=== PATIENT | male | born 1950 | race Caucasian/White ===

== ENCOUNTER → 2017-04-01 | Day surgery (SDC) | payer MEDICARE, BC ==
[~2017-04-01] MED LIST: ALKA-SELTZER125 MG PO; AMOXICILLIN250 MG PO; APPLE CIDER VINEGAR PO; BEET ROOT PO; BENICAR PO; BLACK CHERRY PO; BYSTOLIC2.5 MG PO; CINNAMON ALPHA1 EACH PO; CRESTOR10 MG PO; DOCUSATE SODIU100 MG PO; FLOVENT HFA10.6 GM INH; HYDROCODON-ACE1 EAC7 PO; JANUVIA PO; LO-DOSE ASPIRIN81 M1 PO; MAGNESIUM500 MG PO; OMEPRAZOLE20 M2 PO; TOUJEO SOL300 UNIT/1 SUBQ; TURMERIC500 M1 PO; TYLENOL PM PO; ZINC LOZENGE25 MG PO; ZYLOPRIM100 MG PO
--- NOTE | ~2017-04-01 | OR ---
Unit #: [id number] #: [id number] Patient: LISBET SANTOS [id number] [facility]. [address] [place], [place] [address] [id number] O MR#: [id number] NAME: LISBET SANTOS ROOM: Date of Procedure: 04/01/2017 Admission Date: 04/01/2017 Surgeon: Kirill Solis Jr., M.D. : 1950 Attending Physician: Kirill Solis Jr., M.D. Primary Care Physician: Rodolfo Marin Jr., M.D. OPERATIVE REPORT INDICATIONS FOR PROCEDURE The patient is a 66-year-old white male, who recently underwent a biopsy of 2 separate lesions, one of the right lateral back and one of the midback. The midback proved to be no evidence of any cancer. The lateral back looks suspicious for possible early melanoma. It was felt this needed to be widely excised. He is brought in this time at his request for this procedure. PREOPERATIVE DIAGNOSIS Possible melanoma of the right flank. POSTOPERATIVE DIAGNOSIS Possible melanoma of the right flank. ANESTHESIA 1% Xylocaine with epinephrine locally. PROCEDURE PERFORMED Wide excision of scar and skin lesion of the right flank. DESCRIPTION OF PROCEDURE The patient was positioned in left lateral decubitus position. After being prepped and draped in routine fashion, he was anesthetized locally in the area of the scar from his recent biopsy with 1% Xylocaine with epinephrine. An elliptical incision was made around the lesion with the closest margins being over a centimeter in length. This incision was carried down through the skin and subcutaneous tissue with #10 blade scalpel down to the deeper subcutaneous tissue. After the specimen was completely removed, it was sent to pathology. Hemostasis was achieved with Bovie cautery. The deeper tissue approximated with interrupted 3-0 Vicryl sutures. The subcutaneous tissue approximated with continuous 4-0 Vicryl stitch and skin edges approximated with 5-0 nylon sutures. Sterile dressings were applied externally. Estimated blood loss minimal. No drains used. No complications. The patient was discharged in satisfactory condition. Dictated by... Kirill Solis Jr., M.D. JMB/lai Unit #: [id number] #: [id number] Patient: MANISH SANTOSRAQUEL Mcmillan TD: 04/01/2017 23:34 JOB #: [id number] OPERATIVE REPORT Page 1 of 1 X Kirill Solis MD PROCEDURE OPERATIVE NOTE
== END | disposition home or self-care (01) ==
LOC: CSUR 12:52
DX: D22.5 Melanocytic nevi of trunk (principal); I12.9 Hypertensive chronic kidney disease with stage 1 through stage 4 chronic kidney disease, or unspecified chronic kidney disease; E11.22 Type 2 diabetes mellitus with diabetic chronic kidney disease; N18.3 Chronic kidney disease, stage 3 (moderate); M19.90 Unspecified osteoarthritis, unspecified site; E78.00 Pure hypercholesterolemia, unspecified; Z87.891 Personal history of nicotine dependence; Z80.0 Family history of malignant neoplasm of digestive organs; Z88.0 Allergy status to penicillin; Z79.891 Long term (current) use of opiate analgesic; Z79.2 Long term (current) use of antibiotics; Z79.84 Long term (current) use of oral hypoglycemic drugs; Z79.82 Long term (current) use of aspirin; Z79.51 Long term (current) use of inhaled steroids; Z96.653 Presence of artificial knee joint, bilateral; Z98.890 Other specified postprocedural states
CPT/HCPCS: 82947; 88300